=== PATIENT | female | born 1935 | race Caucasian/White ===

== ENCOUNTER 2016-05-01 09:19 | Emergency (ER) | payer OTHER ==
[~2016-05-01] VITALS: Ht 167.6 cm; Wt 103.4 kg
[~2016-05-01 09:19] MED LIST: ASPIRIN CHILDRE81 MG PO; ASPIRIN EC81 M1 PO; CALCIUM 600600 M1 PO; CLOPIDOGREL75 M1 PO; FAMOTIDINE40 MG PO; HUMALOG 75/2100 U/ML SC; HUMALOG MI100 UNIT/3 SC; LEVOTHYROXINE0.05 M1 PO; LEVOTHYROXINE0.1 M1 PO; LEVOTHYROXINE88 MCG PO; MAGNESIUM OXID400 MG PO; METFORMIN HCL1000 M1 PO; METOPROLOL SUCC25 M1 PO; OCUVITE SOFTGE1 EACH PO; VITAMIN B-121000 MC3 PO; VITAMIN B6100 MG PO; VITAMIN C500 M6 PO; VITAMIN D-32000 UNIT PO; ZESTRIL10 M1 PO
--- NOTE | 2016-05-01 09:44 | ED CARDIAC/CP/PALPITATIONS ---
History of Present Illness General Chief Complaint: Chest Pain Stated Complaint: CP X 1HR, HX OF IN, PACEMAKER Source: patient, old records Exam Limitations: no limitations, unable to give history, patient's age, not alert/orientated, clinical condition, confusion, dementia, poor historian, intoxication, language barrier, physical impairment Vital Signs & Intake/Output Vital Signs & Intake/Output Vital Signs Date Time Temp Pulse Resp B/P Pulse O2 O2 Flow FiO2 Ox Delivery Rate 05/01 1317 97.2 60 19 137/63 96 05/01 1055 96.8 62 20 157/69 99 05/01 0926 98.0 61 20 143/82 98 Allergies Coded Allergies: MDX - Ezetimibe (From ZETIA) (LEG WEAKNESS 02/16/15) MDX - Atorvastatin (From LIPITOR) (Intermediate, WEAK LEGS 10/17/13) MDX - Simvastatin (From ZOCOR) (Intermediate, WEAK LEGS. 10/17/13) Reconcile Medications Ascorbic Acid (Vitamin C) 500 MG TAB 1 TAB PO DAILY SUPPLEMENT (Reported) Aspirin (Aspirin EC) 81 MG ECT 1 TAB PO DAILY HEART (Reported) Calcium Carbonate (Calcium 600) (Unknown Strength) TAB (Unknown Dose) PO DAILY SUPPLEMENT (Reported) CHOLECALCIFEROL (VITAMIN D3) (Vitamin D-3) 2,000 IU SGL 1 SGL PO DAILY SUPPLEMENT (Reported) CLOPIDOGREL BISULFATE (Clopidogrel) 75 MG TABLET 1 TAB PO DAILY HEART ( Reported) Cu/Se/Vit A/Vit C/Vit E/Zinc (Ocuvite) 1 TAB TAB 1 TAB PO DAILY SUPPLEMENT ( Reported) Cyanocobalamin (Vitamin B-12) 1,000 MCG TAB 1 TAB PO DAILY SUPPLEMENT ( Reported) Famotidine 40 MG TABLET 1 TAB PO DAILY STOMACH (Reported) Insulin Lispro (Humalog 75/25) 100 U/ML JULIETA 30 UNITS SC QAM DIABETES ( Reported) Insulin Lispro (Humalog 75/25) 100 U/ML JULIETA 27 UNITS SC QPM DIABETES ( Reported) Levothyroxine Sodium (Levothyroxine) 0.088 MG TAB 1 TAB PO DAILY THYROID ( Reported) Lisinopril 10 MG TAB 1 TAB PO DAILY BP (Reported) Magnesium Oxide 400 MG TABLET 1 TAB PO DAILY SUPPLEMENT FOR 4 WEEKS METFORMIN HCL (Metformin) 1,000 MG TABLET 1 TAB PO BID DIABETES (Reported) Metoprolol Succinate 25 MG TAB.ER.24H 1 TAB PO DAILY HEART (Reported) Pyridoxine (Vitamin B6) 100 MG TAB 1 TAB PO DAILY SUPPLEMENT (Reported) Triage Note: SUDDEN ONSET OF NON RADIATING LEFT SIDED CHEST PAIN APPROXIMATELY ONE HOUR AGO THAT TOOK HER BREATH AWAY. WAS SOB, NOT DIAPHORETIC PAIN 8/10 WHEN IT HAPPENED, NOW PAIN FREE Triage Nurses Notes Reviewed? yes HPI: Patient had a 1 hour long episode of episodic substernal sharp chest pain. Patient states the pain started suddenly and would last a few minutes and then go away. There is no radiation of the pain. There are no aggravating or mitigating factors. Patient has a history of an IN but states that she has never had pain like this before. Patient denies any shortness of breath. There is no diaphoresis. There is no nausea or vomiting. Patient has been currently pain free for the past 45 minutes. Patient comes in for evaluation. Past History Travel History Traveled to [place] past 21 day No Medical History Any Pertinent Medical History? see below for history Neurological: NONE EENT: NONE Cardiovascular: hypertension, PACER Respiratory: NONE Gastrointestinal: NONE Hepatic: NONE Renal: NONE Psychiatric: NONE Endocrine: diabetes, hypothyroidism Blood Disorders: NONE Cancer(s): NONE DIRECTOR OF EVENTS/Reproductive: NONE History of MRSA: No History of VRE: No History of CDIFF: No Tetanus Vaccine: 02/16/15 Surgical History Surgical History: non-contributory Psychosocial History Who do you live with Son Services at Home None What is your primary language Belarusian Tobacco Use: Never used ETOH Use: denies use Illicit Drug Use: denies illicit drug use Family History Hx Contributory? No Review of Systems Review of Systems Constitutional: Reports: no symptoms. EENTM: Reports: no symptoms. Respiratory: Reports: no symptoms. Cardiovascular: Reports: see HPI, chest pain. GI: Reports: no symptoms. Genitourinary: Reports: no symptoms. Musculoskeletal: Reports: no symptoms. Skin: Reports: no symptoms. Neurological/Psychological: Reports: no symptoms. Hematologic/Endocrine: Reports: no symptoms. Immunologic/Allergic: Reports: no symptoms. All Other Systems: Reviewed and Negative Physical Exam Physical Exam General Appearance: well developed/nourished, alert, awake, mild distress Head: atraumatic Eyes: Bilateral: PERRL, EOMI. Ears, Nose, Throat: normal pharynx, normal ENT inspection Neck: normal inspection, supple, full range of motion Respiratory: normal breath sounds, chest non-tender, no respiratory distress, lungs clear Cardiovascular: regular rate/rhythm, normal peripheral pulses, systolic murmur Gastrointestinal: normal bowel sounds, soft, non-tender, no organomegaly Back: normal inspection Extremities: normal inspection, normal capillary refill, normal range of motion, no edema Neurologic/Psych: no motor/sensory deficits, awake, alert, oriented x 3, normal gait, normal mood/affect Skin: intact, normal color, warm/dry Core Measures ACS in differential dx? Yes ASA ordered for poss ACS? Yes-ordered Severe Sepsis Present: No Septic Shock Present: No Progress Differential Diagnosis: AMI, musculoskeletal pain, myocarditis, pericarditis, pneumonia, pneumothorax, pulmonary embolism Plan of Care: Orders Procedure Date/time Status Consistent Carbohydrate 1 05/01 L Complete Heart Healthy Diet 05/01 D Active TROPONIN LEVEL 05/01 1251 Complete EKG 05/01 1251 Active Telemetry/New Product Trainer 05/01 0944 Active URINALYSIS 05/01 0944 Active TROPONIN LEVEL 05/01 0944 Complete COMPREHENSIVE METABOLIC PANEL 05/01 0944 Complete CBC WITHOUT DIFFERENTIAL 05/01 0944 Complete EKG 05/01 0920 Active Laboratory Tests 05/01/16 1313: Troponin I < 0.01 05/01/16 1052: Anion Gap 7, Estimated GFR > 60, BUN/Creatinine Ratio 22.5, Glucose 75, Calcium 9.2, Total Bilirubin 0.4, AST 20, ALT 21, Alkaline Phosphatase 66, Troponin I < 0.01, Total Protein 6.5, Albumin 3.4 L, Globulin 3.1, Albumin/Globulin Ratio 1.1, CBC w Diff NO MAN DIFF REQ, RBC 4.70, MCV 84.2, MCH 28.1, RDW 13.8, MPV 7.8 , Gran % 57.7, Lymphocytes % 28.7, Monocytes % 7.8, Eosinophils % 5.3 H, Basophils % 0.5, Absolute Granulocytes 5.6, Absolute Lymphocytes 2.8, Absolute Monocytes 0.8 H, Absolute Eosinophils 0.5, Absolute Basophils 0, PUBS MCHC 33.3 Diagnostic Imaging: Viewed by Me: Radiology Read. Discussed w/RAD: Radiology Read. CXR Impression: PATIENT: SHELLI CHENG PRESENT AGE: 80 PATIENT ACCOUNT NO: [id number] : 36 LOCATION: [facility] ORDERING PHYSICIAN: MIKE MOROCHO MD SERVICE DATE: 05/01/16 EXAM TYPE: RAD - XRY- PORTABLE CHEST XRAY EXAMINATION: XR PORTABLE CHEST CLINICAL INFORMATION: Chest pain COMPARISON: 09/16/2013 TECHNIQUE: Portable view of the chest was obtained. FINDINGS: Left chest wall dual-lead pacer is unchanged with leads overlying the right atrium and right ventricle. Cardiac leads overlie the chest. There is mild elevation of the right hemidiaphragm, similar to prior. No dense consolidation, edema, or effusion. Minimal linear left basilar atelectasis. No pneumothorax. The cardiomediastinal silhouette is unchanged. No acute osseous abnormality. IMPRESSION: Minimal left basilar linear atelectasis. Stable elevation of the right hemidiaphragm. No dense consolidation. DICTATED BY: JABARI SALGUERO MD DATE/TIME DICTATED:05/01/161018 PATIENT CASE MANAGER:JOEL DATE/TIME TRANSCRIBED:05/01/161018 CONFIDENTIAL, DO NOT COPY WITHOUT APPROPRIATE AUTHORIZATION. <Electronically signed in Other Vendor System> SIGNED BY: JABARI SALGUERO MD 05/01/16 1024 Initial ED EKG: pacemaker rhythm Repeat EKG: unchanged Rhythm Strip: ATRIAL PACED Departure Departure Disposition: HOME OR SELF CARE Condition: Stable Clinical Impression Primary Impression: Chest pain, unspecified Qualifiers: Chest pain type: other chest pain Qualified Code: R07.89 - Other chest pain Referrals: LAISHA VANN MD (PCP/Family) Additional Instructions: RETURN IF SYMPTOMS WORSEN OR FOR ANY CONCERNS Departure Forms: Customer Survey General Discharge Information Critical Care Note Critical Care Note Critical Care Time: non-applicable
--- NOTE | 2016-05-01 10:24 | RADIOLOGY REPORT ---
EXAMINATION: XR PORTABLE CHEST CLINICAL INFORMATION: Chest pain COMPARISON: 09/16/2013 TECHNIQUE: Portable view of the chest was obtained. FINDINGS: Left chest wall dual-lead pacer is unchanged with leads overlying the right atrium and right ventricle. Cardiac leads overlie the chest. There is mild elevation of the right hemidiaphragm, similar to prior. No dense consolidation, edema, or effusion. Minimal linear left basilar atelectasis. No pneumothorax. The cardiomediastinal silhouette is unchanged. No acute osseous abnormality. IMPRESSION: Minimal left basilar linear atelectasis. Stable elevation of the right hemidiaphragm. No dense consolidation.
[2016-05-01 11:04] LABS: ABSOLUTE BASOPHIL COUNT 0 /CUMM (0.0-0.2); ABSOLUTE EOSINOPHIL COUNT 0.5 /CUMM (0.0-0.7); ABSOLUTE GRANULOCYTE CT 5.6 /CUMM (1.4-6.5); ABSOLUTE LYMPH COUNT 2.8 /CUMM (1.2-3.4); ABSOLUTE MONOCYTE COUNT 0.8 /CUMM (0.10-0.60); BASOPHIL % 0.5 % (0.0-2.0); EOSINOPHIL % 5.3 % (0-5); GRANULOCYTE % 57.7 % (42.2-75.2); HEMATOCRIT 39.6 % (37-47); MEAN CORPUSCULAR HGB 28.1 PG (27.0-31.0); MEAN CORPUSCULAR HGB CONC 33.3 G/DL (33.0-37.0); MEAN CORPUSCULAR VOLUME 84.2 FL (81.0-99.0); MEAN PLATELET VOLUME 7.8 FL (7.4-10.4); PLATELET COUNT 418 /CUMM (130-400); RBC DISTRIBUTION WIDTH 13.8 % (11.5-14.5); WHITE BLOOD CELL COUNT 9.7 /CUMM (4.8-10.8)
[2016-05-01 13:17] VITALS: BP 137/63
== END 2016-05-01 14:58 ==
LOC: ERH 09:19
PROVIDERS: Emergency Medicine
DX: R07.9 Chest pain, unspecified (principal)
CPT/HCPCS: 93005; 93010

== ENCOUNTER 2016-09-22 10:59 | Emergency (ER) | payer OTHER ==
[~2016-09-22] VITALS: Ht 167.6 cm; Wt 96.2 kg
--- NOTE | 2016-09-22 11:15 | ED DYSPNEA/ASTHMA COMPLAINT ---
History of Present Illness General Chief Complaint: Dyspnea (COPD, CHF, Other) Stated Complaint: SOB Source: patient Exam Limitations: no limitations Vital Signs & Intake/Output Vital Signs & Intake/Output Vital Signs Date Time Temp Pulse Resp B/P B/P Pulse O2 O2 Flow FiO2 Mean Ox Delivery Rate 09/22 1420 98.6 71 20 156/76 98 Room Air 09/22 1317 69 18 133/63 97 Room Air 09/22 1123 98 09/22 1119 97.6 71 16 146/58 98 Room Air Allergies Coded Allergies: ezetimibe (From ZETIA) (LEG WEAKNESS 09/22/16) atorvastatin (From LIPITOR) (Intermediate, WEAK LEGS 09/22/16) simvastatin (Intermediate, WEAK LEGS 09/22/16) Reconcile Medications Ascorbate Calcium (Vitamin C) 500 MG TABLET 1 TAB PO DAILY VITAMIN SUPPORT ( Reported) Aspirin (Ecotrin*) 81 MG TABLET.DR 1 TAB PO DAILY HEART HEALTH (Reported) Cholecalciferol (Vitamin D3) (Vitamin D-3) 2,000 UNIT TABLET 1 TAB PO DAILY VITAMIN SUPPORT (Reported) Clopidogrel Bisulfate (Clopidogrel) 75 MG TABLET 1 TAB PO DAILY BLOOD THINNER (Reported) Cyanocobalamin (Vitamin B-12) 1,000 MCG TABLET 1 TAB PO DAILY VITAMIN SUPPORT (Reported) Furosemide 20 MG TABLET 1 TAB PO DAILY leg swelling Insulin NPL/Insulin Lispro (Humalog Mix 75-25 Kwikpen) 100 UNIT/ML (75-25) INSULN.PEN 30 U SC DAILY DIABETES (Reported) Insulin NPL/Insulin Lispro (Humalog Mix 75-25 Kwikpen) 100 UNIT/ML (75-25) INSULN.PEN 27 U SC QPM DIABETES (Reported) Levothyroxine Sodium 88 MCG TABLET 1 TAB PO DAILY AC THYROID (Reported) Lisinopril (Zestril) 10 MG TABLET 1 TAB PO DAILY BP (Reported) Metformin HCl 1,000 MG TABLET 1 TAB PO BID DIABETES (Reported) Metoprolol Succinate 25 MG TAB 1 TAB PO DAILY HEART (Reported) Sertraline HCl 50 MG TABLET 1 TAB PO DAILY MENTAL HEALTH (Reported) Vit C/Vit E/[place]in/Min/[place]-3 (Ocuvite Softgel) 150 MG-30 UNIT-5 MG-150 MG CAPSULE 1 TAB PO DAILY VITAMIN SUPPORT (Reported) Triage Note: PT TO ED FOR C/C OF SOB FOR MONTHS. OVER THE LASTMONTH SHE HAS DEVELOPED NIGHT SWEATS AND HAS BEEN SLEEPING WITH TWO PILLOWS INSTEAD OF ONE. DENIES CHEST PAIN. BECAME CONCERNED TODAY SINCE HER ANKLE BECAME SWOLLEN. NO HISTORY OF CHF, BUT HAS HAD [place], PACE MAKER, ?AFIB. PT TAKEN TO ROOM 16 FROM TRIAGE. Triage Nurses Notes Reviewed? yes HPI: Patient is a 81 YO F with PMH significant for CAD, inferior wall [place], HTN, Diabetes came to the ER with progressivley worsening dyspnea. She started to notice shortness of breath around 4-5mon ago, intially exertional, progressed to daily activities. Now she feels short of breath even with minimal exertion but at rest not short of breath. She reports having 2 pillow orthopnea, PND with night sweats, dry cough, abdominal discomfort. Recently increasing fluid intake. No phlegm production. Recent increse in swelling around the legs for the past 1 week with occasional lighheadedness while standing from sitting position. She denies any chest pain, recent weight gain, syncopal episodes. No recent changes in medications, diet. He left lower extremity is more swollen than right lower extremity. Social Denies smoking /Alcohol /Drugs Family history Brother with significant heart problems including bypass surgeries (age unknown) Follows - director of quality, Dr. de leon - diabetes. (MILI HO,ANJU) Past History Travel History Traveled to [place] past 21 day No Medical History Any Pertinent Medical History? 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 Yes (MILI HO,ANJU) Review of Systems Review of Systems Constitutional: Reports: see HPI. EENTM: Reports: no symptoms. Respiratory: Reports: cough, short of breath, sputum production. Denies: stridor, wheezing. Cardiovascular: Reports: see HPI, peripheral edema. GI: Reports: see HPI. Genitourinary: Reports: see HPI. Musculoskeletal: Reports: see HPI. Skin: Reports: see HPI. Neurological/Psychological: Reports: see HPI. (MILI HO,ANJU) Physical Exam Physical Exam General Appearance: well developed/nourished, no apparent distress, alert, awake , comfortable Head: atraumatic, normal appearance Eyes: Bilateral: normal appearance, PERRL, EOMI. Ears, Nose, Throat: normal pharynx, dry mucous membranes present. Neck: hepatojugular reflex present Respiratory: no respiratory distress, quiet respiration, lungs clear, mild decrease in breath sounds, no crackles Cardiovascular: regular rate/rhythm, edema, normal peripheral pulses Peripheral Pulses: 2+ radial (R), 2+ radial (L) Gastrointestinal: normal bowel sounds, non-tender, distention Core Measures ACS in differential dx? No Severe Sepsis Present: No Septic Shock Present: No (MILI HO,ANJU) Progress Differential Diagnosis: pulmonary embolism, heart failure Plan of Care: Orders Procedure Date/time Status Add-on Test (ER Only) 09/22 1244 Active PARTIAL THROMBOPLASTIN TIME 09/22 1149 Complete PROTHROMBIN TIME 09/22 1149 Complete D-DIMER 09/22 1149 Complete B-TYPE NATRIURETIC PEP (BNP) 09/22 1127 Complete TROPONIN LEVEL 09/22 1101 Complete COMPREHENSIVE METABOLIC PANEL 09/22 1101 Complete CBC WITHOUT DIFFERENTIAL 09/22 1101 Complete EKG 09/22 1101 Active Laboratory Tests 09/22/16 1306: PT 12.6 H, INR 1.20 H, APTT 31, D-Dimer High Sensitivty 295 H 09/22/16 1149: Wbn-Q-Nwzilbcnumi Pept Cancelled 09/22/16 1127: Anion Gap 9, Estimated GFR 48 L, BUN/Creatinine Ratio 23.6, Glucose 234 H, Calcium 9.3, Total Bilirubin 0.6, AST 15, ALT 19, Alkaline Phosphatase 88, Troponin I < 0.01, Rqe-B-Mjjnwqrzbpd Pept 467 H, Total Protein 6.8, Albumin 3.8 , Globulin 3.0, Albumin/Globulin Ratio 1.3, CBC w Diff NO MAN DIFF REQ, RBC 4.64 , MCV 83.1, MCH 28.1, RDW 13.9, MPV 8.2, Gran % 53.3, Lymphocytes % 34.1, Monocytes % 8.2, Eosinophils % 3.4, Basophils % 1.0, Absolute Granulocytes 5.2, Absolute Lymphocytes 3.3, Absolute Monocytes 0.8 H, Absolute Eosinophils 0.3, Absolute Basophils 0.1, PUBS MCHC 33.8 Diagnostic Imaging: Viewed by Me: Ultrasound. Initial ED EKG: atrial paced rhythm, HR 60, QTc 448, OK 216 Pathologic Q waves in lead III, aVF Prior EKG: unchanged Hand-Off Endorsed To: JOSE MIGUEL HO,JOHANNA Comments: Spoke with informed about starting furosemide 20mg dialy and she has to follow up in office in 2 weeks (MILI HO,ANJU) Diagnostic Imaging: Viewed by Me: Radiology Read, Ultrasound. Discussed w/RAD: Radiology Read, Ultrasound. Radiology Impression: PATIENT: SHELLI CHENG PRESENT AGE: 81 PATIENT ACCOUNT NO: [id number] : 36 LOCATION: [facility] ORDERING PHYSICIAN: ANJU GARCES MD SERVICE DATE: 09/22/16-1220 EXAM TYPE: US - US-UNILATERAL VENOUS DOPPLER EXAMINATION: US TRIPLEX LOWER EXTREMITY, LEFT CLINICAL INFORMATION: Progressive shortness of breath, decreased mobility. Rule out left DVT. Asymmetric swelling of left lower extremity. COMPARISON: 2011. TECHNIQUE: Color-flow triplex imaging with spectral analysis and compression Doppler were performed on the lower extremity. FINDINGS: Respiratory variation, normal compression and augmented flow are noted throughout the left lower extremity. The visualized common femoral vein, superficial femoral vein, profunda femoral vein, popliteal vein and midcalf peroneal and posterior tibial venous segments show no evidence of deep venous thrombosis. There is no Gurrola's cyst. IMPRESSION: Normal triplex scan without evidence of deep venous thrombosis involving the lower extremity. DICTATED BY: ERA MCKEON MD DATE/TIME DICTATED:09/22/161249 MOLD BREAKER:JOEL DATE/TIME TRANSCRIBED:1249 CONFIDENTIAL, DO NOT COPY WITHOUT APPROPRIATE AUTHORIZATION. < Electronically signed in Other Vendor System> SIGNED BY: ERA MCKEON MD 09/22/16 125 CXR Impression: PATIENT: SHELLI CHENG PRESENT AGE: 81 PATIENT ACCOUNT NO: [id number] : 36 LOCATION: [facility] ORDERING PHYSICIAN: JOHANNA GILLESPIE MD SERVICE DATE: 09/22/161140 EXAM TYPE: RAD - XRY-CHEST XRAY , PA AND LATERAL EXAMINATION: XR CHEST CLINICAL INFORMATION: Dyspnea COMPARISON: 05/01/2016 TECHNIQUE: 2 views of the chest were obtained. FINDINGS: No focal consolidation, pulmonary edema, or pleural effusion. Stable cardiomediastinal silhouette. IMPRESSION: Unremarkable examination. DICTATED BY: ANASTACIA JULIAN MD DATE/TIME DICTATED:09/22/161220 MOLD BREAKER:JOEL DATE/TIME TRANSCRIBED:09/22/161220 CONFIDENTIAL, DO NOT COPY WITHOUT APPROPRIATE AUTHORIZATION. <Electronically signed in Other Vendor System> SIGNED BY: ANASTACIA JULIAN MD 09/22/16 1226 (JOHANNA GILLESPIE MD) Departure Departure Disposition: HOME OR SELF CARE Condition: Stable Clinical Impression Primary Impression: Congestive heart failure of unknown etiology Referrals: LAISHA DE LEON MD (PCP/Family) Departure Forms: Customer Survey General Discharge Information Prescriptions: Current Visit Scripts Furosemide 1 TAB PO DAILY #30 TAB (ANJU GARCES MD) Resident Co-Sign Statement Statement: ED Attending supervision documentation- [x] I saw and evaluated the patient. I have also reviewed all the pertinent lab results and diagnostic results. I agree with the findings and the plan of care as documented in the Resident's documentation. [x] I have reviewed the ED Record and agree with the Resident's documentation. [] Additions or exceptions (if any) to the Resident's note and plan are summarized below: [] (JOHANNA GILLESPIE MD) Critical Care Note Critical Care Note Critical Care Time: non-applicable (ANJU GARCES MD)
[2016-09-22 11:43] LABS: ABSOLUTE BASOPHIL COUNT 0.1 /CUMM (0.0-0.2); ABSOLUTE EOSINOPHIL COUNT 0.3 /CUMM (0.0-0.7); ABSOLUTE GRANULOCYTE CT 5.2 /CUMM (1.4-6.5); ABSOLUTE LYMPH COUNT 3.3 /CUMM (1.2-3.4); ABSOLUTE MONOCYTE COUNT 0.8 /CUMM (0.10-0.60); EOSINOPHIL % 3.4 % (0-5); GRANULOCYTE % 53.3 % (42.2-75.2); HEMATOCRIT 38.6 % (37-47); MEAN CORPUSCULAR HGB 28.1 PG (27.0-31.0); MEAN CORPUSCULAR HGB CONC 33.8 G/DL (33.0-37.0); MEAN CORPUSCULAR VOLUME 83.1 FL (81.0-99.0); MEAN PLATELET VOLUME 8.2 FL (7.4-10.4); PLATELET COUNT 385 /CUMM (130-400); RBC DISTRIBUTION WIDTH 13.9 % (11.5-14.5); RED BLOOD CELL CT 4.64 /CUMM (4.20-5.40); WHITE BLOOD CELL COUNT 9.7 /CUMM (4.8-10.8)
[2016-09-22] MEDS ORDERED: SERTRALINE HCL50 MG PO (12:15)
--- NOTE | 2016-09-22 12:26 | RADIOLOGY REPORT ---
EXAMINATION: XR CHEST CLINICAL INFORMATION: Dyspnea COMPARISON: 05/01/2016 TECHNIQUE: 2 views of the chest were obtained. FINDINGS: No focal consolidation, pulmonary edema, or pleural effusion. Stable cardiomediastinal silhouette. IMPRESSION: Unremarkable examination.
--- NOTE | 2016-09-22 12:54 | ULTRASOUND REPORT ---
EXAMINATION: US TRIPLEX LOWER EXTREMITY, LEFT CLINICAL INFORMATION: Progressive shortness of breath, decreased mobility. Rule out left DVT. Asymmetric swelling of left lower extremity. COMPARISON: 03/25/2012. TECHNIQUE: Color-flow triplex imaging with spectral analysis and compression Doppler were performed on the lower extremity. FINDINGS: Respiratory variation, normal compression and augmented flow are noted throughout the left lower extremity. The visualized common femoral vein, superficial femoral vein, profunda femoral vein, popliteal vein and midcalf peroneal and posterior tibial venous segments show no evidence of deep venous thrombosis. There is no Gurrola's cyst. IMPRESSION: Normal triplex scan without evidence of deep venous thrombosis involving the lower extremity.
[2016-09-22 13:27] LABS: PT 12.6 SEC (9.4-12.5); PTT 31 SEC (25-37)
[2016-09-22] MEDS ORDERED: FUROSEMIDE20 M1 PO (14:17)
[2016-09-22 14:20] VITALS: BP 156/76
== END 2016-09-22 14:49 ==
LOC: ERH 10:59
PROVIDERS: Emergency Medicine; Internal Medicine
DX: I50.9 Heart failure, unspecified (principal)
CPT/HCPCS: 93005; 93010